=== PATIENT | female | born 1980 | race Caucasian/White ===

== ENCOUNTER 2024-02-01 14:20 | Emergency (ER) | payer OTHER ==
[~2024-02-01] VITALS: Ht 180.3 cm; Wt 99.9 kg
[~2024-02-01 14:20] MED LIST: NORCO 5-325 TA1 EACH PO; ZOLOFT25 MG PO
[2024-02-01 15:41] VITALS: BP 121/80
== END 2024-02-01 15:38 | disposition home or self-care (01) ==
LOC: ED 14:20
DX: T44.5X1A Poisoning by predominantly beta-adrenoreceptor agonists, accidental (unintentional), initial encounter (principal); R00.0 Tachycardia, unspecified; Z79.899 Other long term (current) drug therapy
CPT/HCPCS: 99282